=== PATIENT | female | born 1995 | race Hispanic/Latino ===

== ENCOUNTER 2025-05-23 18:41 | Emergency (ER) | payer BC ==
[~2025-05-23] VITALS: Ht 152.4 cm; Wt 96.6 kg
[~2025-05-23 18:41] MED LIST: GABA-529 PO
[2025-05-23] MEDS: acetaMINOPHEN 500 MG TABLET PO ONE (19:21)
--- NOTE | 2025-05-23 19:32 | HMCIMG ---
LEFT FOURTH TOE RADIOGRAPHS - 2-3 VIEWS INDICATION: Fourth toe crush injury COMPARISON: None FINDINGS: AP, lateral, and oblique views. No evidence for acute fracture or subluxation. No intrinsic osseous abnormality detected. No radiopaque foreign body noted. IMPRESSION: No evidence for fracture or subluxation.
--- NOTE | 2025-05-23 19:36 | ERN ---
General Chief Complaint: Toe Pain/Injury Stated Complaint: TOE INJURY Time Seen by MD: 19:11 History of Present Illness Initial Comments Otherwise healthy 21-year-old female presents for left 4th toe injury. Chair slammed on her toe prior to arrival. Moderate pain. No other injuries. Full range of motion. She has some bruising to the toe but is neurovascularly intact. There is a small hematoma under the nail. Nail is intact. Allergies: Coded Allergies: No Known Allergies (Unverified Allergy, Unknown, 05/23/25) Home Meds Active Scripts Gabapentin (Gabapentin) 100 Mg Capsule, 100 MG PO TID for 10 Days, #30 CAP Prov:NEEL LEPE MD 06/15/24 Past Medical History Past Medical History: Diabetes-Type II, Other Medical History Other: IRENE, CHRONIC FATUGUE Past Surgical History: None ROS Dictation CONSTITUTIONAL: No chills, no fever, no weakness, no diaphoresis, no malaise. HEAD/FACE: No signs of trauma. EENT: No eye pain, no blurred vision, no tearing, no double vision, no ear pain, no ear discharge, no nose pain, no nasal congestion, no throat pain, no throat swelling, no mouth pain. RESPIRATORY: No cough, no orthopnea, no SOB, no stridor, no wheezing. CARDIOVASCULAR: No chest pain, no edema, no palpitations, no syncope. GASTROINTESTINAL/ABDOMINAL: No abdominal pain, no constipation, no diarrhea, no nausea, no vomiting. GENITOURINARY: No abnormal discharge, no dysuria, no frequent urination, no hematuria. No complaints of pain in the genitals. MUSCULOSKELETAL: Left toe pain INTEGUMENTARY: No change in color, no change in hair/nails, no dryness, no lesion, no lumps, no rash. NEUROLOGICAL/PSYCH: No anxiety, not depressed, no emotional problem, no headache, no numbness, no pre-existing deficit, no history of seizures, no tremors, no weakness. HEMATOLOGIC/LYMPHATIC: Not anemic, no history of blood clots, no apparent bleeding, no bruising, glands not swollen. All Systems Negative, Except as Noted. Physical Exam Physical Exam Dictation VITAL SIGNS: Reviewed. GENERAL APPEARANCE: Alert, oriented x3, no acute distress, obese. HEAD AND FACE: Non-traumatic. EYES: PERRL, pink conjunctivas, eyelid no trauma, anterior chamber clear. EARS: Pinnas intact and no signs of trauma or erythema. Ear canals clear and no discharge. TMs no erythema. NOSE: No discharge, no bleeding. OROPHARYNX: Mouth normal, teeth no caries, tongue pink. Pharynx clear, no erythema. Tonsils no exudates, no abscesses noted. Mucous membrane moist. NECK: Supple, non-tender, no thyromegaly, no masses, no JVD, no bruits. BREAST: Deferred. CHEST: No tenderness, no crepitus, no paradoxical movement, no retractions. LUNGS: Clear, well-ventilated, symmetric, no rales, no wheezing, no rhonchi, no stridor, good breath sounds bilaterally. HEART: Regular rate, regular rhythm, no murmur, no gallops. VASCULAR: No peripheral edema. ABDOMEN: Soft, positive bowel sounds, nondistended, no guarding, nontender, no rebound, no masses no hepatomegaly, no splenomegaly, no Muñoz's sign, no herni as. RECTAL: Deferred. GENITAL: Deferred. NEUROLOGICAL: Normal speech, gross motor function intact, gross sensory function intact. MUSCULOSKELETAL: Neck nontender, full range of motion, back nontender, full range of motion. EXTREMITIES: Nontender, full range of motion. SKIN: Color pink, dry, no turgor, no rash, no lacerations, no abrasions, no contusions. LYMPHATICS: Deferred. [facility] CC: Crushing injury of the left toe Historian: Patient No comorbidities No limitations Differential diagnosis: Fracture versus soft tissue injury. Vital signs are stable Clinical exam shows neurovascularly intact toe. X-ray independently interpreted by me shows no fracture We will recommend RICE guidelines, OTC medication for pain and PCP follow up as needed. ED Course Orders Procedure Category Date Status Time Toe(S) 2+Vws Lt RAD 05/23/25 Logged 19:11 Toe(S) 2+Vws Lt RAD 05/23/25 Resulted 19:11 Acetaminophen 500mg PHA 05/23/25 Complete Tab (Tylenol 500mg T 19:30 Current Medications Medications (Trade) Dose Ordered Sig/Rico Route PRN Reason Start Time Stop Time Status Last Admin Dose Admin Acetaminophen (TYLenol 500MG TAB) 1,000 mg ONCE ONCE PO 05/23/25 19:30 05/23/25 19:31 DC 05/23/25 19:21 Vital Signs Date Time Temp Pulse Resp B/P (MAP) Pulse Ox O2 Delivery O2 Flow Rate FiO2 05/23/25 19:07 96.4 92 18 132/84 98 Room Air DX & DISP Disposition: Discharge Departure Impression: Primary Impression: Crushing injury of left lesser toe(s), initial encounter Condition: Stable Additional Instructions: There do not appear to be any fractures on the x-ray. Rest of the toe. Apply ice for 15 minutes at least 3 times a day for the next few days. Wear a hard-soled shoe. Elevate the foot as much as possible. Alternate Tylenol (1000 mg) and ibuprofen (800 mg) every 4 hours as needed for pain. These medications are [id number]. Please follow up with the primary doctor in a few days if you have any concerns. Referrals: ED GALO (PCP) ARBEN CERVANTES DO May 23, 2025 19:36
[2025-05-23 19:40] VITALS: BP 130/80; PULSE 90; RESP 18; TEMP 98.6; O2SAT 99
== END 2025-05-23 19:41 | disposition home or self-care (01) ==
LOC: EDH 18:41
DX: S97.122A Crushing injury of left lesser toe(s), initial encounter (principal); E11.9 Type 2 diabetes mellitus without complications; Z79.899 Other long term (current) drug therapy; W22.03XA Walked into furniture, initial encounter; Y92.89 Other specified places as the place of occurrence of the external cause; Y93.89 Activity, other specified; Y99.8 Other external cause status
CPT/HCPCS: 73660; 99283

== ENCOUNTER 2025-06-17 18:11 | Emergency (ER) | payer BC ==
[~2025-06-17] VITALS: Ht 152.4 cm; Wt 95.3 kg
[2025-06-17 18:12] VITALS: BP 137/79; PULSE 116; RESP 20; TEMP 98.8
== END 2025-06-17 18:57 | disposition left against medical advice (07) ==
LOC: EDH 18:11
DX: O26.90 Pregnancy related conditions, unspecified, unspecified trimester (principal); R10.9 Unspecified abdominal pain; Z53.21 Procedure and treatment not carried out due to patient leaving prior to being seen by health care provider